=== PATIENT | female | born 1940 ===

== ENCOUNTER 2017-01-15 08:21 | Day surgery (SDC) | payer MEDICARE ==
[2017-01-15 09:12] VITALS: BMI 41.5
[2017-01-15] MEDS ORDERED: Propofol 10 mg/ml Inj (20 ML) ONE (11:40)
[2017-01-15] MEDS ORDERED: Lactated Ringer's 500 ML IV SCH (12:00)
[2017-01-15] MEDS ORDERED: Lidocaine Hydrochloride 5 ML INJ ONE (12:01)
[2017-01-15 12:42] VITALS: O2SAT 100
[2017-01-15 13:30] VITALS: TEMP 97.5
[2017-01-15 13:33] VITALS: BP 115/59; PULSE 67; RESP 18
== END 2017-01-15 13:23 | disposition home or self-care (01) ==
LOC: C.ENDO 08:21
PROVIDERS: ATTEND Internal Medicine Gastroenterology
DX: D12.2 Benign neoplasm of ascending colon (principal); K57.90 Diverticulosis of intestine, part unspecified, without perforation or abscess without bleeding; K64.8 Other hemorrhoids
CPT/HCPCS: 45388; 88305; J2704; J7120